=== PATIENT | female | born 1990 | race Caucasian/White ===

== ENCOUNTER 2017-06-23 17:33 | Emergency (ER) | payer OTHER ==
[~2017-06-23] VITALS: Ht 170.2 cm; Wt 144.2 kg
--- NOTE | ~2017-06-23 | CR20 ---
[facility] A Service of [facility] RADIOLOGY TEXT RESULTS PATIENT: WEN PRINGLE LOCATION: SED : [birth year] UNIT #: [id number] AGE: [address]: Jena Nobles PAC SEX: F ORDER DR: [id number] [address] [address] [id number] E MR#: [id number] Acc #: [id number] NAME: WEN PRINGLE : 1990 SEX: F STUDY DATE/TIME: 06/23/2017 19:21 UNIT: SED ROOM: STUDY DESCRIPTION: CR Ankle Min 3 Views Lt Attending Physician: Jena Nobles Pa-C Ordering Physician: Jena Nobles Pa-C Primary Care Physician: No Primary Care Physician MEDICAL IMAGING REPORT This report is preliminary unless electronic signature is present. EXAM Left ankle series dated 06/23/2017 COMPARISON Left foot series dated 06/23/2017. HISTORY Patient fell on Saturday. Pain in the left knee to foot. FINDINGS Three views of the left ankle were obtained. AP, lateral, and oblique projections of the ankle show satisfactory integrity of the joint mortise with a smooth articular surface. There is no identifiable fracture, dislocation, or radiopaque foreign body. IMPRESSION Normal ankle. Dictated by... Thai Gomez M.D. THIS IS AN ELECTRONICALLY VERIFIED REPORT Thai Gomez M.D. at 06/24/2017 7:34 PM CPR/aa TD: 06/24/2017 09:53 JOB #: [id number] [facility] A Service of [facility] RADIOLOGY TEXT RESULTS PATIENT: WEN PRINGLE LOCATION: SED : [birth year] UNIT #: [id number] AGE: [address]: Jena Nobles PAC SEX: F ORDER DR: MEDICAL IMAGING REPORT Page 1 of 1
--- NOTE | ~2017-06-23 | CR126 ---
[facility]. [facility] A Service [facility] RADIOLOGY TEXT RESULTS PATIENT: WEN PRINGLE LOCATION: SED : [birth year] UNIT #: [id number] AGE: [address]: Jena Nobles PAC SEX: F ORDER DR: [id number] [address] [address] [id number] E MR#: [id number] Acc #: [id number] NAME: WEN PRINGLE : 1990 SEX: F STUDY DATE/TIME: 06/23/2017 19:21 UNIT: SED ROOM: STUDY DESCRIPTION: CR Foot Complete Min 3 View Lt Attending Physician: Jena Nobles Pa-C Ordering Physician: Jena Nobles Pa-C Primary Care Physician: Primary Care Physician No MEDICAL IMAGING REPORT This report is preliminary unless electronic signature is present. EXAM Left foot series dated 06/23/17 COMPARISON: Left ankle series dated 06/23/17. HISTORY Patient fell on Saturday with pain extending from the left knee to foot. FINDINGS Three views of the left foot were obtained. The tarsal, metatarsal, and phalangeal elements are all anatomically normal in position and alignment. There are no articular defects. No fractures or radiopaque foreign bodies in the soft tissues are apparent. IMPRESSION Normal foot. Dictated by... Thai Gomez M.D. THIS IS AN ELECTRONICALLY VERIFIED REPORT Thai Gomez M.D. at 06/24/2017 7:34 PM CPR/cmm TD: 06/24/2017 08:26 JOB #: [id number] [facility]. [facility] A Service [facility] RADIOLOGY TEXT RESULTS PATIENT: WEN PRINGLE LOCATION: SED : [birth year] UNIT #: [id number] AGE: [address]: Jena Nobles PAC SEX: F ORDER DR: MEDICAL IMAGING REPORT Page 1 of 1
--- NOTE | ~2017-06-23 | CR169 ---
[facility]. [facility] A Service of [facility] RADIOLOGY TEXT RESULTS PATIENT: WNE PRINGLE LOCATION: SED : [birth year] UNIT #: [id number] AGE: [address]: Jena Nobles SEX: F ORDER DR: [id number] [address] [address] [id number] E MR#: [id number] Acc #: [id number] NAME: WEN PRINGLE : 1990 SEX: F STUDY DATE/TIME: 06/23/2017 19:21 UNIT: SED ROOM: STUDY DESCRIPTION: CR Knee 2 Views Lt Attending Physician: Jena Nobles Pa-C Ordering Physician: Jena Nobles Pa-C Primary Care Physician: No Primary Care Physician MEDICAL IMAGING REPORT This report is preliminary unless electronic signature is present. EXAM Left knee series dated 06/23/17. COMPARISON None. HISTORY The patient fell on Saturday with pain in the knee extending down to the foot. FINDINGS Lateral and oblique views of the left knee are given. Frontal view is not given. No obvious acute displaced fracture, dislocation is seen. Minimal joint effusion cannot be excluded. 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 Dictated by... Thai Gomez M.D. THIS IS AN ELECTRONICALLY VERIFIED REPORT Thai Gomez M.D. at 06/24/2017 7:34 PM CPR/bd TD: 06/24/2017 08:41 JOB #: [id number] MEDICAL IMAGING REPORT Page 1 of 1
[~2017-06-23 17:33] MED LIST: BIRTH CONTROL PILL
[2017-06-23] MEDS ORDERED: SERTRALINE HCL100 M1 (17:46)
[2017-06-23] MEDS ORDERED: SEROQUEL XR150 MG (17:46)
[2017-06-23] MEDS ORDERED: COZAAR100 MG PO (17:46)
[2017-06-23] MEDS ORDERED: IRON325 MG (17:47)
[2017-06-23] MEDS ORDERED: ALBUTEROL17 GM (17:47)
[2017-06-23] MEDS ORDERED: PULMICORT180 MCG/A1 (17:47)
[2017-06-23] MEDS ORDERED: VITAMIN D350000 UNIT (17:48)
== END 2017-06-23 20:07 | disposition home or self-care (01) ==
LOC: SED 17:33
DX: S93.422A Sprain of deltoid ligament of left ankle, initial encounter (principal); S83.422A Sprain of lateral collateral ligament of left knee, initial encounter; I10 Essential (primary) hypertension; X50.1XXA Overexertion from prolonged static or awkward postures, initial encounter; Y92.009 Unspecified place in unspecified non-institutional (private) residence as the place of occurrence of the external cause
CPT/HCPCS: 29530; 29540; 73560; 73610; 73630; 99283